=== PATIENT | female | born 1950 | race Caucasian/White ===

== ENCOUNTER → 2016-12-19 | Outpatient (CLI) | payer OTHER, BC ==
[~2016-12-19] MED LIST: AUGMENTIN 875875 MG PO; BENZONATATE100 MG PO; DULERA 100 MCG/13 GM; FLONASE 0.05%50 MCG NASAL; MEDROLDOSEPACK PO; VENTOLIN HFA 1818 GM INH
== END ==
LOC: RAD 10:52
DX: Z12.31 Encounter for screening mammogram for malignant neoplasm of breast (principal)

== ENCOUNTER → 2018-02-06 | Outpatient (CLI) | payer OTHER, BC | LOC: RAD 09:42 | DX: Z12.31 Encounter for screening mammogram for malignant neoplasm of breast (principal) ==

== ENCOUNTER → 2019-02-18 | Outpatient (CLI) | payer OTHER, BC | LOC: RAD 02:58 | DX: N64.52 Nipple discharge (principal) ==

== ENCOUNTER → 2019-02-23 | Outpatient (CLI) | payer OTHER, BC | LOC: ULTRA 02:28 | DX: N60.01 Solitary cyst of right breast (principal); R92.2 Inconclusive mammogram ==

== ENCOUNTER 2019-07-30 10:08 | Inpatient (IN) | payer OTHER, BC ==
[~2019-07-30] VITALS: Ht 167.6 cm; Wt 81.6 kg
[2019-07-30] VITALS (7 sets, daily range): BP systolic 132–156; BP diastolic 61–91
[2019-07-30 10:56] LABS: ABSOLUTE NEUTROPHILS 4.9 thou/uL (1.4-8.2); BASOPHILS 0.8 % (0.0-2.0); EOSINOPHILS 1.5 % (0.0-3.0); HEMOGLOBIN 13.8 gm/dL (12.0-15.0); LYMPHOCYTES 29.2 % (24.0-44.0); MCH 30.3 pg (26.0-34.0); MCHC 33.5 g/dL (28.0-37.0); MCV 90.2 fL (80.0-100.0); MONOCYTES 4.7 % (1.0-8.0); PLATELET COUNT 320 thou/uL (150-400); POLYS 63.8 % (36.0-66.0); RBC 4.55 mil/uL (4.20-5.00); RDW 14.4 % (10.5-14.5); WBC 7.7 thou/uL (4.0-11.0)
[2019-07-30 10:59] LABS: ANION GAP 12 mmol/L (7-16); BUN 20 mg/dL (7-18); CALCIUM 9.3 mg/dL (8.5-10.1); CHLORIDE 105 mmol/L (98-107); CO2 26 mmol/L (21-32); CREATININE 0.9 mg/dL (0.6-1.0); GLUCOSE 181 mg/dL (74-106); POTASSIUM 3.8 mmol/L (3.5-5.1); SODIUM 143 mmol/L (136-145)
[2019-07-30 11:10] LABS: ALBUMIN 3.8 g/dL (3.4-5.0); MAGNESIUM 2.1 mg/dL (1.8-2.4); SGOT 21 U/L (15-37); SGPT 18 U/L (30-65); TOTAL BILIRUBIN 0.8 mg/dL (<0.1-1.0); TOTAL PROTEIN 7.2 g/dL (6.4-8.2); TROPONIN-I <0.06 ng/mL (<0.06)
[2019-07-30 11:15] LABS: APTT 28.7 Seconds (24.5-32.8)
[2019-07-30] MEDS ORDERED: LEVO-T25 MCG PO (12:28)
[2019-07-30] MEDS ORDERED: PREMARIN0.9 MG PO (12:29)
[2019-07-30] MEDS ORDERED: SUPER THERAVIT1 EACH PO (12:30)
[2019-07-30] MEDS ORDERED: VITAMIN E1000 UNIT PO (12:30)
[2019-07-30] MEDS ORDERED: SIMVASTATIN80 MG PO (12:30)
--- NOTE | 2019-07-30 15:01 | EKG ---
[facility] [place] [address] ELECTROCARDIOGRAM REPORT Name: SHUKRI ANTONIO Room #: 203-P ADM IN M.R.#: [id number] Admission: 07/30/19 Attend Phys: Roe Menon MD Discharge: Date of : 46 Report #: [id number] THIS REPORT FOR: cc: Ganga Paige MD, Rene P. MD Lundgren,Angus Quiñones MD [facility] ~ THIS REPORT FOR: //name// [facility] ED Test Date: 2019-07-30 Test Time: 10:14:45 Pat Name: SHUKRI ANTONIO Department: Room: 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1950 Requested By: Oziel Jackson Order Number: [id number] MD: Angus Macdonald Measurements Intervals [place] Rate: 84 P: 71 DE: 130 QRS: -26 QRSD: 107 T: 165 QT: 406 QTc: 480 Interpretive Statements Sinus rhythm Inferior infarct, old Poor R wave progression No previous ECG available for comparison Electronically Signed On 07-30-2019 14:59:47 CDT by Angus Macdonald [email or web address] <ELECTRONICALLY SIGNED> By: Angus Macdonald MD, [facility] 07/30/19 1459 1014 1014 Angus Macdonald MD, [facility] /EPI
[2019-07-30] MEDS ORDERED: PREMARIN0.625 MG PO (15:17)
--- NOTE | 2019-07-30 16:00 | 2DMMODE ---
[facility] [place] [address] 2 D/M-MODE ECHOCARDIOGRAM Name: SHUKRI ANTONIO Room #: 203-P ADM IN M.R.#: [id number] Admission: 07/30/19 Attend Phys: Roe Menon MD Discharge: Date of : 46 Report #: [id number] THIS REPORT FOR: cc: Ganga Paige MD, Rene P. MD Lundgren, Craig H. MD [facility] ~ APPROVED REPORT Study performed: 07/30/2019 15:09:38 EXAM: Comprehensive 2D, Doppler, and color-flow Echocardiogram Patient Location: Bedside Room #: 203 Status: routine BSA: 1.91 HR: 70 bpm BP: 156/80 mmHg Rhythm: NSR Other Information Study Quality: Adequate Indications Chest Pain 2D Dimensions RVDd: 29.79 mm IVSd: 10.63 (7-11mm) LVOT Diam: 21.66 (18-24mm) LVDd: 44.15 mm PWd: 8.45 (7-11mm) Ascending Ao: 32.59 (22-36mm) LVDs: 23.54 (25-40mm) Aortic Root: 34.32 mm Volumes Left Atrial Volume (Systole) Single Plane 4CH: 44.19 mL Single Plane 2CH: 51.35 mL LA ESV Index: 27.00 mL/m2 Aortic Valve AoV Peak Edvin.: 1.16 m/s AO Peak Gr.: 5.41 mmHg LVOT Max P.46 mmHg LVOT Max V: 1.06 m/s LIS Vmax: 3.[address] [facility] [address] [place] [address] 2 D/M-MODE ECHOCARDIOGRAM Name: SHUKRI ANTONIO Room #: 203-P [facility]#: [id number] Admission: 07/30/19 Attend Phys: Roe Menon MD Discharge: Date of : 46 Report #: [id number] Mitral Valve E/A Ratio: 1.3 MV Decel. Time: 224.47 ms MV E Max Edvin.: 0.84 m/s MV A Edvin.: 0.66 m/s MV PHT: 65.10 ms IVRT: 59.98 ms Pulmonary Valve PV Peak Edvin.: 0.86 m/s PV Peak Gr.: 2.97 mmHg Pulmonary Vein P Vein S: 0.66 m/s P Vein A: 0.47 m/s P Vein D: 0.70 m/s P Vein A Dur.: 138.4 msec P Vein S/D Ratio: 0.94 Tricuspid Valve TR Peak Edvin.: 2.26 m/s RAP Estimate: 5.00 mmHg TR Peak Gr.: 20.41 mmHg PA Pressure: 25.00 mmHg Left Ventricle The left ventricle is normal size. There is normal LV segmental wall motion. Mild basal septal hypertrophy is present. Left ventricular systolic function is normal. LVEF is 55-60%. Moderate diastolic dysfunction is present (pseudonormal filling). Right Ventricle The right ventricle is normal size. The right ventricular systolic function is normal. Atria The left atrium size is normal. The right atrium size is normal. Aortic Valve The aortic valve is normal in structure. No aortic regurgitation. There is no aortic valvular stenosis. Mitral Valve The mitral valve is normal in structure. Trace mitral regurgitation. Tricuspid Valve The tricuspid valve is normal in structure. Trace tricuspid regurgitation. Estimated PAP is 25mmHg. [facility] [place] [address] 2 D/M-MODE ECHOCARDIOGRAM Name: SHUKRI ANTONIO Room #: 203-P ADM IN M.R.#: [id number] Admission: 07/30/19 Attend Phys: Roe Menon MD Discharge: Date of : 46 Report #: [id number] Pulmonic Valve The pulmonary valve is normal in structure. Trace pulmonic regurgitation. Great Vessels The aortic root is normal in size. The ascending aorta is normal in size. IVC is normal in size and collapses >50% with inspiration. Pericardium There is no pericardial effusion. <Conclusion> Left ventricular systolic function is normal. There is normal LV segmental wall motion. LVEF is 55-60%. Moderate diastolic dysfunction. The aortic valve is normal in structure. No aortic regurgitation or stenosis. The mitral valve is normal in structure. Trace mitral regurgitation. Trace tricuspid regurgitation. Estimated pulmonary artery pressure of 25mmHg. There is no pericardial effusion. <ELECTRONICALLY SIGNED> By: Angus Macdonald MD, FACC 07/30/19 1558 1558 1558 Angus Macdonald MD, FACC /INF
--- NOTE | 2019-07-30 16:40 | NUR ---
NEW ADMIT FROM ER FOR CHEST PAIN. PT ALERT X4 FROM HOME ALONE. FEBRUARY 2019, REPORTS FAMILY HISTORY OF HEART PROBLEMS. PT DENIES CHEST PAIN AT THIS TIME. DENIES SOB. NSR ON TELE. UP AB ROSY IN ROOM. ECHO COMPLETED TODAY. NUC STRESS TEST SCHEDULED FOR SATURDAY MORNING. ADMISSION HISTORY AND ASSESMENT COMPLETED. CONSENTS SIGNED. PERSONAL ITEMS AND CALL LIGHT IN REACH.
--- NOTE | 2019-07-31 03:15 | NUR ---
ASSESSMENT DOCUMENTED.PT BEEN RESTING IN NO ACUTE DISTRESS.VSS.DENIES CHEST PAIN OR ANY CONCERNS.UP AD ROSY TO BR.VOIDING ADEQAUTELY.PT DENIES ANY NEEDS AT THIS TIME.WILL CONT TO MONITOR PER POC.
[2019-07-31 04:36] LABS: HEMATOCRIT 36.6 % (37.0-47.0); HEMOGLOBIN 12.3 gm/dL (12.0-15.0); MCH 30.4 pg (26.0-34.0); MCHC 33.5 g/dL (28.0-37.0); MCV 90.8 fL (80.0-100.0); RBC 4.03 mil/uL (4.20-5.00); RDW 14.2 % (10.5-14.5)
[2019-07-31 04:52] VITALS: BP 128/65
[2019-07-31 05:06] LABS: ANION GAP 12 mmol/L (7-16); BUN 13 mg/dL (7-18); CHLORIDE 108 mmol/L (98-107); CO2 23 mmol/L (21-32); CREATININE 0.9 mg/dL (0.6-1.0); GLUCOSE 113 mg/dL (74-106); POTASSIUM 3.8 mmol/L (3.5-5.1); SODIUM 143 mmol/L (136-145); TROPONIN-I <0.06 ng/mL (<0.06)
[2019-07-31 07:35] VITALS: BP 156/62
--- NOTE | 2019-07-31 09:59 | NUR ---
cm spoke with pt bedside nurse, pt able to make her needs know, and is out of room for test/procedure. pt independent. will cont following as needed for dc needs. pt son and daughter at her contacts, her spouse in feb 2019
[2019-07-31 12:05] VITALS: BP 160/74
[2019-07-31 13:01] VITALS: BP 160/74
--- NOTE | 2019-07-31 14:40 | NUR ---
ASSUMED CARE 0700. A/O X4, STRESS TEST COMPLETED. DC HOME WITH SELF CARE. REVIEWED DISCHARGE PAPERS, REMOVED IV AND TELE. ALL BELONGING SENT WITH PATIENT.
--- NOTE | 2019-08-01 11:52 | EKG ---
[facility] [place] [address] ELECTROCARDIOGRAM REPORT Name: SHUKRI ANTONIO Room #: 203- DIS IN M.R.#: [id number] Admission: 07/30/19 Attend Phys: Roe Menon MD Discharge: 07/31/19 Date of : 46 Report #: [id number] THIS REPORT FOR: cc: Ganga Paige MD, Rene P. MD Couchonnal, Luis F. 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1950 Requested By: Tracy Butler Order Number: [id number] MD: Efrain Padilla Measurements Intervals [place] Rate: 65 P: 21 DC: 128 QRS: -23 QRSD: 96 T: 46 QT: 425 QTc: 442 Interpretive Statements Sinus rhythm Inferior infarct, old Compared to ECG 07/30/2019 10:14:45 Poor R-wave progression no longer present Myocardial infarct finding still present Electronically Signed On 08-01-2019 11:50:54 CDT by Efrain Padilla [email or web address] <ELECTRONICALLY SIGNED> By: Efrain Padilla MD 08/01/19 1150 0743 Efrain Padilla MD /EPI
== END 2019-07-31 14:39 | disposition home or self-care (01) | DRG 303 ==
LOC: ER 10:08 → 2N 12:01 → EROBS 12:01 → 2N 13:46 → ENTRNSPT 07-31 14:31 → 2N 07-31 14:39
PROVIDERS: Emergency Medicine; ADMIT Hospitalist
DX: I25.119 Atherosclerotic heart disease of native coronary artery with unspecified angina pectoris (principal); E11.9 Type 2 diabetes mellitus without complications; E03.9 Hypothyroidism, unspecified; E78.5 Hyperlipidemia, unspecified; J45.909 Unspecified asthma, uncomplicated; I10 Essential (primary) hypertension; E78.00 Pure hypercholesterolemia, unspecified; Z88.5 Allergy status to narcotic agent; Z82.49 Family history of ischemic heart disease and other diseases of the circulatory system; Z88.2 Allergy status to sulfonamides; Z88.8 Allergy status to other drugs, medicaments and biological substances; Z79.2 Long term (current) use of antibiotics; Z79.82 Long term (current) use of aspirin; Z79.899 Other long term (current) drug therapy; Z90.49 Acquired absence of other specified parts of digestive tract; Z90.710 Acquired absence of both cervix and uterus
CPT/HCPCS: 10081

== ENCOUNTER → 2020-02-22 | Outpatient (CLI) | payer OTHER, BC ==
[~2020-02-22] VITALS: Ht 167.6 cm; Wt 81.2 kg
[~2020-02-22] MED LIST changes: +APAP W/CODEINE1 TA2 PO; +LEVO-T25 MCG PO; +PREMARIN0.625 MG PO; +PREMARIN0.9 MG PO; +SIMVASTATIN80 MG PO; +SUPER THERAVIT1 EACH PO; +VITAMIN B-12500 MC5 PO; +VITAMIN E1000 UNIT PO
== END ==
LOC: LAB 09:08
PROVIDERS: ATTEND Surgery
DX: Z01.812 Encounter for preprocedural laboratory examination (principal); Z20.828 Contact with and (suspected) exposure to other viral communicable diseases

== ENCOUNTER 2020-02-25 07:23 | Day surgery (SDC) | payer OTHER, BC ==
[~2020-02-25] VITALS: Ht 167.6 cm; Wt 83.0 kg
[~2020-02-25 07:23] MED LIST changes: -APAP W/CODEINE1 TA2 PO
[2020-02-25 08:05] VITALS: BP 153/72
[2020-02-25] MEDS ORDERED: APAP W/CODEINE1 TA2 PO (11:19)
[2020-02-25 11:27] VITALS: BP 153/72
--- NOTE | 2020-03-01 12:24 | O ---
[facility] [place] [address] OPERATIVE REPORT Name: SHUKRI ANTONIO Room #: DEP [facility] M..#: [id number] Admission: 02/25/20 Attend Phys: Ariel Pretty MD Discharge: 02/25/20 Date of : 46 Report #: [id number] THIS REPORT FOR: cc: Ganga Paige MD, Rene P. MD Chu,Ariel Anand MD ~ CC: Ariel Paige DATE OF SERVICE: 02/25/2020 PREOPERATIVE DIAGNOSIS: Bloody nipple discharge. POSTOPERATIVE DIAGNOSIS: Bloody nipple discharge. PROCEDURE PERFORMED: Left breast biopsy with excision of abnormal duct. ANESTHESIA: General. COMPLICATIONS: None. ESTIMATED BLOOD LOSS: 5 mL. PROCEDURE NOTE: With the patient under general anesthesia, left breast was prepped and draped in a sterile fashion. This was then ____ and draped in sterile fashion. Timeout was performed. A 0.25% Marcaine was used to anesthetize the skin around the inferior aspect of the areola. A small lacrimal probe was able to be passed into the duct with discharge. This pointed to the subareolar location. A curvilinear incision about 3 cm was made infraumbilically. The skin was lifted off of the breast tissue. The duct was visualized and noted to be prominent. Excision was then started around to resect this area. The ducts were preserved intact within the specimen. There are a few dilated ducts at the margins, full of creamy material. The main disease portion was removed in the specimen. Specimen measured about 2 x 3 cm. Dissection was carried down underneath the nipple, removing the involved duct. Irrigation was performed. No bleeding was identified. Subcu was closed with 4-0 PDS. Skin was then closed with 5-0 PDS. Steri-Strips, pressure dressing, OpSite were used. The patient tolerated the procedure well. <ELECTRONICALLY SIGNED> By: Ariel Pretty MD 03/01/20 1224 1441 1612 Ariel Pretty MD /nt
--- NOTE | 2020-03-01 22:06 | PATH ---
[facility] [address] [place] [address] PATHOLOGY RPT PROCEDURE Name: SHUKRI BENNETT Room #: DEP [facility] M.R.#: [id number] Admission: 02/25/20 Date of : 46 Discharge: 02/25/20 Report #: [id number] Path Case #: [id number] [facility] Accession Number: [id number] . 01 Material submitted: . breast - LEFT BREAST BIOPSY STITCH GAMEZ PROXIMAL SUBAREOLAR DUCT. Modifiers: left . 01 Clinical history: . BIOPSY BREAST UNILATERAL LEFT BREAST MASS . 02 Diagnosis: "Left breast biopsy", stich gamez proximal subareolar duct, lumpectomy: - Intraductal papilloma. - Benign breast tissue with fibrocystic changes including stromal fibrosis, cyst formation, duct ectasia, apocrine metaplasia, usual duct hyperplasia, elastosis and adenosis with rare microcalcifications present; no cytologic atypia or malignancy seen. (CLW:pit 02/29/2020) QTP 02/29/2020 1341 Local . 02 Comment: Teacher Counselor slides (blocks A6, A7, A8, and A15) are co-reviewed with Dr. Shamir Church. Clinical and radiographic correlation is required. (CLW:tamiko 02/29/2020) . 02 Electronically signed: . Viviana Jones MD, Pathologist NPI- [id number] . 01 Gross description: . The specimen is received in formalin, labeled "Shukri Bennett, left breast biopsy, stitch gamez proximal subareolar duct". Received is a 14 g segment of yellow-uribe fibroadipose tissue measuring 4.9 x 3.3 x 2.3 cm in greatest dimensions with a suture designating the proximal subareolar duct. The sutured area is inked red and the remaining margin is inked black. Sectioning reveals bright yellow, lobulated to white, fibrous cut surfaces throughout. The fibrous tissue encompasses approximately 25% of the specimen. No distinct nodules or lesions are noted grossly. The specimen is submitted entirely in cassettes A1 through A19. The sections in cassettes A7 through A16 additionally bisected. The cold ischemic time is 3 minutes. The total formalin fixation time is 37 hours and 44 minutes. ([facility]; 02/26/2020) QAC/QAC 02/26/2020 1835 Local . 02 [place] [address] PATHOLOGY RPT PROCEDURE Name: SHUKRI BENNETT Room #: DEP [facility] M.Preston#: [id number] Admission: 02/25/20 Date of : 46 Discharge: 02/25/20 Report #: [id number] Path Case #: [id number] Pathologist provided ICD-10: D24.2, N60.12, N60.32, N60.02, N60.42, N60.82, N62, N60.22 . 02 CPT . 485974 Specimen Comment: A courtesy copy of this report has been sent to [phone] Specimen Comment: Report sent to Performed at: [address], [place] [id number] MD Cali Gonzalez MD Phone: [phone] Performed at: [address] [id number] MD Morelia Bobby MD Phone: [phone]
== END 2020-02-25 12:10 | disposition home or self-care (01) ==
LOC: OR 07:23 → TBA 07:23 → OR 10:21
PROVIDERS: ATTEND Surgery
DX: N64.52 Nipple discharge (principal); D24.2 Benign neoplasm of left breast; N60.42 Mammary duct ectasia of left breast; Z79.899 Other long term (current) drug therapy; Z98.890 Other specified postprocedural states; Z88.2 Allergy status to sulfonamides; Z88.8 Allergy status to other drugs, medicaments and biological substances
CPT/HCPCS: 50010; 50101; 50386; 50417; 51301; 54118; 56525; 56526; 62110; 62900; 70005

== ENCOUNTER → 2021-03-13 | Outpatient (CLI) | payer OTHER, BC ==
[~2021-03-13] MED LIST changes: +APAP W/CODEINE1 TA2 PO
== END ==
LOC: RAD 10:23
PROVIDERS: ATTEND Family Medicine
DX: Z12.31 Encounter for screening mammogram for malignant neoplasm of breast (principal)